=== PATIENT | female | born 1980 | race Caucasian/White ===

== ENCOUNTER 2016-09-14 10:27 | Emergency (ER) | payer MEDICAID, OTHER ==
[2016-09-14] MEDS ORDERED: HYDROmorphONE/DILAUDID 1 MG/ML SYR IVP ONE (11:10)
[2016-09-14] MEDS ORDERED: HYDROmorphONE/DILAUDID 1 MG/ML SYR ONE (11:11)
[2016-09-14 11:20] LABS: % IMMATURE GRANULYOCYTES 0.4 % (0.0-1.1); ABSOLUTE IMMATURE GRANULOCYTES 0.04 10^3/uL (0.00-0.10); ADD DIFF? NO; ADD MORPH? NO; ADD SCAN? NO; ATYPICAL LYMPHOCYTE FLAG 0 (0-99); FRAGMENT RBC FLAG 0 (0-99); HEMATOCRIT 40.5 % (38.0-47.0); HEMOGLOBIN 14.1 g/dL (12.6-16.3); LEFT SHIFT FLG 0 (0-99); LIPEMIA HEMOLYSIS FLAG 90 (0-99); MEAN CELL HEMOGLOBIN 32.8 pg (27.9-34.1); MEAN CELL HEMOGLOBIN CONCENTR. 34.8 g/dL (32.4-36.7); MEAN CELL VOLUME 94.2 fL (81.5-99.8); MEAN PLATELET VOLUME 9.2 fL (8.7-11.7); PLATELET CLUMPS FLAG 0 (0-99); PLATELET COUNT 359 10^3/uL (150-400); RED CELL DISTRIBUTION WIDTH 13.4 % (11.5-15.2)
[2016-09-14 11:24] LABS: COLOR YELLOW; LEUKOCYTE ESTERASE,URINE NEGATIVE (NEGATIVE); NITRITE,URINE NEGATIVE (NEGATIVE)
[2016-09-14 11:30] LABS: BACTERIA 2+ /hpf (NONE SEEN); MUCUS TRACE /lpf (NONE-1+); RBC,URINE 50-182 /hpf (0-3)
[2016-09-14 11:37] LABS: ANION GAP 12 mEq/L (8-16); CALCIUM 9.1 mg/dL (8.5-10.4); CARBON DIOXIDE 23 mEq/l (22-31); CHLORIDE 105 mEq/L (97-110); CREATININE 0.7 mg/dL (0.6-1.0); GLOMERULAR FILTRATION RATE > 60; GLUCOSE 87 mg/dL (70-100); POTASSIUM 4.1 mEq/L (3.5-5.2); SODIUM 140 mEq/L (134-144)
[2016-09-14] MEDS ORDERED: IOPAMIDOL (ISOVUE-300) 100 ML BTL IV ONE (11:49)
--- NOTE | 2016-09-14 12:01 | EDPHY ---
H & P Stated Complaint: 3WEEKS POST OP FROM LIPO/ABDOMINALPLASTY Time Seen by Provider: 09/14/16 11:09 HPI/ROS: CHIEF COMPLAINT: right flank pain, right lower quadrant pain HISTORY OF PRESENT ILLNESS: 36-year-old female presents emergency department complaining of right flank and right lower quadrant pain that started last night around 10:00 p.m.. Patient states she started with cramps in her abdomen on the right in then radiated to her back. She reports nausea, no vomiting. She reports feeling chills and dizziness, no fevers. She denies difficulty urinating no hematuria, dysuria. Patient had an abdominal plasty and liposection 3 weeks ago. She had her drains removed 4 days ago that were still draining 50 mL daily. She saw her surgeon today her sent her here for further workup. Patient denies drainage from her incision site or redness. She denies other abdominal surgery. She reports she feels constipated as she has had no bowel movement x2 days. No history of kidney stones. REVIEW OF SYSTEMS: A comprehensive 10 point review of systems is otherwise negative aside from elements mentioned in the history of present illness. Source: Patient Exam Limitations: No limitations - Personal History LMP (Females 10-55): 8-14 Days Ago Current Tetanus/Diphtheria Vaccine: Yes Current Tetanus Diphtheria and Acellular Pertussis (TDAP): Yes - Medical/Surgical History Hx Asthma: No Hx Chronic Respiratory Disease: No Hx Diabetes: No Hx Cardiac Disease: No Hx Renal Disease: No Hx Cirrhosis: No Hx Alcoholism: No Hx HIV/AIDS: No Hx Splenectomy or Spleen Trauma: No Other PMH: PMH- PCOS. PSH- LIPO/ABD - Family History Significant Family History: No pertinent family hx - Social History Smoking Status: Former smoker - Physical Exam Exam: Physical Exam Gen: Alert and Oriented, NAD HEENT: PERRL, moist mucous membranes NECK: no meningismus CV: regular rate and regular rhythm PULM: CTAB, no wheezes ABDOMEN: soft, mild diffuse tenderness to palpation, worse in right lower quadrant, surgical incision with no surrounding erythema, no drainage. BS present BACK: Right CVA tenderness NEURO: Neurologically grossly intact EXTREMITIES: normal appearing SKIN: Surgical incision free from signs of infection PSYCH: answers questions appropriately. Constitutional: Initial Vital Signs Temperature (C) 36.5 C 09/14/16 10:31 Heart Rate 70 09/14/16 10:31 Respiratory Rate 16 09/14/16 10:31 Blood Pressure 191/76 H 09/14/16 10:31 O2 Sat (%) 98 09/14/16 10:31 O2 Delivery Mode Room Air Allergies/Adverse Reactions: acetaminophen [From Percocet] Allergy (Verified 09/14/16 10:32) hydrocodone bitartrate [From Vicodin] Allergy (Verified 09/14/16 10:32) oxycodone HCl [From Percocet] Allergy (Verified 09/14/16 10:32) Home Medications: Medication Instructions Recorded DILAUDID 09/14/16 HYDROmorphone HCL [Dilaudid 2 mg 2 mg PO Q4-6PRN PRN #15 tab 09/14/16 (*)] IBUPROFEN 09/14/16 Ondansetron Odt [Zofran Odt] 4 mg PO Q6-8PRN PRN #8 tab 09/14/16 Spironolactone 09/14/16 Tamsulosin HCl [Flomax 0.4 MG (*)] 0.4 mg PO DAILY #7 cap 09/14/16 metFORMIN HCL 09/14/16 traMADol 09/14/16 traMADol [Ultram 50 mg (*)] 50 mg PO Q4 #10 tab 09/14/16 Medical Decision Making - Diagnostics Imaging: CT abdomen pelvis with IV contrast- Impression: 1. Small obstructing right ureteral stone described above. 2. Normal appendix. 3. Postoperative changes consistent with recent liposuction and umbilical hernia repair. Results discussed with Marv Arboleda at 12:44 PM. ED Course/Re-evaluation: IV established, CBC, chemistry panel and urinalysis along with test obtained. CBC is unremarkable, chemistry panel is normal, urinalysis shows 50- 182 red blood cells. I think the patient likely has a ureteral calculi though due to her recent surgery I cannot rule out an abscess. CT abdomen pelvis has been ordered with IV contrast. Patient has been given 1 mg of Dilaudid IV with 4 mg of Zofran for pain and nausea. 1pm-CT abdomen pelvis shows a small right ureteral calculi with mild hydronephrosis. Patient will be discharged home with pain medication, Zofran and tamsulosin. 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 She has been given return precautions for worsening symptoms, vomiting, fevers, pain that is not controlled. Differential Diagnosis: The differential diagnosis for the patient's flank pain included but was not limited to musculoskeletal causes, kidney stone, pyelonephritis, shingles, diverticulitis, appendicitis, and aortic aneurysm. - Data Points Laboratory Results: Laboratory Results 09/14/16 11:00 09/14/16 11:00 09/14/16 09/14/16 11:22 11:00 WBC 9.49 10^3/uL (3.80-9.50) RBC 4.30 10^6/uL (4.18-5.33) Hgb 14.1 g/dL (12.6-16.3) Hct 40.5 % (38.0-47.0) MCV 94.2 fL (81.5-99.8) MCH 32.8 pg (27.9-34.1) MCHC 34.8 g/dL (32.4-36.7) RDW 13.4 % (11.5-15.2) Plt Count 359 10^3/uL (150-400) MPV 9.2 fL (8.7-11.7) Neut % (Auto) 77.8 H % (39.3-74.2) Lymph % (Auto) 14.1 L % (15.0-45.0) Esmeralda % (Auto) 7.0 % (4.5-13.0) Eos % (Auto) 0.5 L % (0.6-7.6) Baso % (Auto) 0.2 L % (0.3-1.7) Nucleat RBC Rel Count 0.0 % (0.0-0.2) Absolute Neuts (auto) 7.38 H 10^3/uL (1.70-6.50) Absolute Lymphs (auto) 1.34 10^3/uL (1.00-3.00) Absolute Monos (auto) 0.66 10^3/uL (0.30-0.80) Absolute Eos (auto) 0.05 10^3/uL (0.03-0.40) Absolute Basos (auto) 0.02 10^3/uL (0.02-0.10) Absolute Nucleated RBC 0.00 10^3/uL (0-0.01) Immature Gran % 0.4 % (0.0-1.1) Immature Gran # 0.04 10^3/uL (0.00-0.10) Sodium 140 mEq/L (134-144) Potassium 4.1 mEq/L (3.5-5.2) Chloride 105 mEq/L (97-110) Carbon Dioxide 23 mEq/l (22-31) Anion Gap 12 mEq/L (8-16) BUN 12 mg/dL (7-23) Creatinine 0.7 mg/dL (0.6-1.0) Estimated GFR > 60 Glucose 87 mg/dL (70-100) Calcium 9.1 mg/dL (8.5-10.4) Beta HCG, Qual NEGATIVE Urine Color YELLOW Urine Appearance MODERATELY TURBID Urine pH 6.0 (5.0-7.5) Ur Specific Bicknell 1.012 (1.002-1.030) Urine Protein NEGATIVE (NEGATIVE) Urine Ketones NEGATIVE (NEGATIVE) Urine Blood 3+ H (NEGATIVE) Urine Nitrate NEGATIVE (NEGATIVE) Urine Bilirubin NEGATIVE (NEGATIVE) Urine Urobilinogen NEGATIVE EU (0.2-1.0) Ur Leukocyte Esterase NEGATIVE (NEGATIVE) Urine RBC 50-182 H /hpf (0-3) Urine WBC 3-5 H /hpf (0-3) Ur Epithelial Cells 2+ H /lpf (NONE-1+) Urine Bacteria 2+ H /hpf (NONE SEEN) Urine Mucus TRACE /lpf (NONE-1+) Ur Culture Indicated? INDICATED H (NI) Urine Glucose NEGATIVE (NEGATIVE) Medications Given: Discontinued Medications Hydromorphone HCl (Dilaudid) 0.5 mg IVP EDNOW ONE Stop: 09/14/16 11:11 Last Admin: 09/14/16 11:16 Dose: 0.5 mg Hydromorphone HCl (Dilaudid) 2 mg PO EDNOW ONE Stop: 09/14/16 13:10 Last Admin: 09/14/16 13:36 Dose: 2 mg Sodium Chloride (Ns) 1,000 mls @ 0 mls/hr IV ONCE ONE PRN Reason: Wide Open Stop: 09/14/16 12:36 Last Admin: 09/14/16 12:37 Dose: 1,000 mls Ketorolac Tromethamine (Toradol) 30 mg IVP EDNOW ONE Stop: 09/14/16 13:10 Last Admin: 09/14/16 13:36 Dose: 30 mg Tamsulosin HCl (Flomax) 0.4 mg PO EDNOW ONE Stop: 09/14/16 13:11 Last Admin: 09/14/16 13:36 Dose: 0.4 mg Departure - Departure Disposition: Home, Routine, Self-Care Clinical Impression: Right ureteral calculus Condition: Good Instructions: Kidney Stones (ED), High Fiber Diet (ED), Constipation (ED) Additional Instructions: Kidney stone: Take Dilaudid as needed for severe pain. Use Zofran as needed for nausea. Take ibuprofen 600 mg every 6-8 hours as needed for moderate pain. This will also help with inflammation. Take Flomax as directed. Followup with urology as directed for symptoms not improving. Strain urine. Return to the emergency department if you have worsening pain, fevers, persistent vomiting, or other concerns. Drink plenty of fluids, eat more fiber, take MiraLax daily, take a stool softener every single time you take a pain pill. Follow-up with your surgeon for continued concerns with constipation. Referrals: Meaghan Light MD [Medical Doctor] - As per Instructions (Urologist on-call) Prescriptions: HYDROmorphone HCL [Dilaudid 2 mg (*)] 2 mg PO Q4-6PRN PRN #15 tab PRN Reason: Pain, Moderate Tamsulosin HCl [Flomax 0.4 MG (*)] 0.4 mg PO DAILY #7 cap traMADol [Ultram 50 mg (*)] 50 mg PO Q4 #10 tab Ondansetron Odt [Zofran Odt] 4 mg PO Q6-8PRN PRN #8 tab PRN Reason: Nausea/Vomiting, Can'T Take Po
[2016-09-14] MEDS ORDERED: NS 1,000 ML IV ONE (12:35)
[2016-09-14 12:43] VITALS: TEMP 97.9
--- NOTE | 2016-09-14 12:46 | CT ---
CT Abdomen and Pelvis With Contrast, 12:05 PM History: Right-sided pain, possible appendicitis. Technique: Ultrathin ultrafast [address] volumetric data set is acquired through the abdome n and pelvis after bolus administration of 90 mL of nonionic Isovue 300 contrast. Images are reviewed . Dose reduction techniques were utilized. Comparison: None Findings: Abdomen: There is mild right caliectasis and hydropelvis with 2 tiny nonobstructive stones present in the lower pole collecting system of the right kidney. There is mild right hydroureter up to the leve l of the L3-L4 disk space where there is a 3.8 x 3.8 x 3 mm obstructing ureteral stone. There is body wall edema consistent with recent liposuction. There is a bland, subumbilical, pancake- like fluid collection in the deep subcutaneous fat anterior to the rectus musculature, consistent wit h a postoperative seroma. There is no associated marginal enhancement to suggest abscess formation.. There are surgical clips associated with both anterior rectus muscles consistent with prior umbilica l hernia repair. Lung lung bases are normally aerated without pleural effusion. Heart size is mega l without pericardial effusion.. Liver and spleen look normal as do the pancreas, left kidney and ret roperitoneum. There is no evidence for bowel obstruction . There is no abdominal free fluid or free a ir. Pelvis: There is a normal vermiform appendix, with its tip residing at the level of the mid sacrum. T he terminal ileum looks normal. There is a small amount of pelvic free fluid. There is no evidence of a pelvic abscess or pelvic bowel obstruction.. A small round hypodense lesion in the left side of th e uterine corpus likely represents an intramural fibroid measuring approximately 13 mm. There is mini mal descending colon and proximal sigmoid diverticulosis without evidence of diverticulitis. Impression: 1. Small obstructing right ureteral stone described above. 2. Normal appendix. 3. Postoperative changes consistent with recent liposuction and umbilical hernia repair. Results discussed with Marv Arboleda at 12:44 PM. General information for patients regarding this examination can be found at [email or web address]. If you have questions or comments about this report, please contact me at [phone] (hospital) or [phone] (cell).
[2016-09-14] MEDS ORDERED: HYDROmorphONE/DILAUDID 2 MG TAB PO ONE (13:09)
[2016-09-14] MEDS ORDERED: KETOROLAC 30 MG/1 ML SDV IVP ONE (13:09)
[2016-09-14] MEDS ORDERED: TAMSULOSIN HCL 0.4 MG CAP PO ONE (13:10)
[2016-09-14 14:15] VITALS: BP 106/70; PULSE 69; RESP 16; O2SAT 97
== END 2016-09-14 14:14 | disposition home or self-care (01) ==
DX: N20.1 Calculus of ureter (principal); Z87.891 Personal history of nicotine dependence
CPT/HCPCS: 96374; J1170; J1885; Q9967